=== PATIENT | male | born 1980 | race African-American/Black ===

== ENCOUNTER 2020-12-28 19:36 | Emergency (ER) | payer MEDICAID ==
[~2020-12-28] VITALS: Ht 185.4 cm; Wt 91.0 kg
[2020-12-28] MEDS ORDERED: IBUPROFEN 600MG TABLET PO ONE (20:15)
[2020-12-28 21:00] VITALS: BP 122/80
[2020-12-28] MEDS ORDERED: LIDOCAINE 5% PATCH TOP SCH (21:00)
[2020-12-28] MEDS ORDERED: LIDO700A15 TP (21:50)
[2020-12-28] MEDS ORDERED: IBUP-2029 MT (21:50)
== END 2020-12-28 22:35 | disposition home or self-care (01) ==
LOC: ER 19:36
DX: S43.492A Other sprain of left shoulder joint, initial encounter (principal); S13.4XXA Sprain of ligaments of cervical spine, initial encounter; S60.512A Abrasion of left hand, initial encounter; V49.40XA Driver injured in collision with unspecified motor vehicles in traffic accident, initial encounter; Y93.89 Activity, other specified; Y92.488 Other paved roadways as the place of occurrence of the external cause
CPT/HCPCS: 73030; 99283; A4217; Z7610